=== PATIENT | female | born 1965 | race African-American/Black ===

== ENCOUNTER 2018-05-24 12:43 | Observation (INO) | payer MEDICAID ==
[~2018-05-24] VITALS: Ht 160 cm; Wt 117.9 kg
[~2018-05-24 12:43] MED LIST: BENADRYL; CLONIDINE; IBUP1POW8; LISIPOW; TRAMADOL; VICODIN
[2018-05-24] MEDS ORDERED: ACETAMINOPHEN 325 MG TAB PO ONE (15:15)
[2018-05-24 16:08] LABS: Basophils # (auto) 0.1 uL; Eosinophils # (auto) 0.2 uL; Neutrophils # (auto) 6.8 uL; Nucleated Red Blood Cells % 0.1 %
[2018-05-24 16:09] LABS: Basophils % (auto) 1.3 % (0.0-2.0); Eosinophils % (auto) 1.9 % (0.0-7.0); Hematocrit 37.7 % (36.0-46.0); Hemoglobin 12.3 g/dL (12.2-16.2); Lymphocytes # (auto) 1.7 uL; Lymphocytes % (auto) 17.8 % (10.0-50.0); Mean Corpuscular Hemoglobin 26.8 pg (28.0-32.0); Mean Corpuscular Hgb Conc. 32.8 g/dL (32.0-36.0); Mean Corpuscular Volume 81.7 fL (80.0-100.0); Monocytes # (auto) 0.9 uL; Monocytes % (auto) 9.4 % (0.0-12.0); Neutrophils % (auto) 69.6 % (37.0-80.0); Platelet Count (auto) 293 10^3/uL (140-450); Red Blood Cells 4.61 10^6/uL (4.0-5.20); Red Cell Distribution Width 15.4 % (11.8-14.3); White Blood Cell 9.7 10^3/uL (4.4-10.8)
[2018-05-24 16:20] LABS: Albumin 3.4 g/dL (3.4-5.0); Calcium 8.7 mg/dL (8.5-10.1); Magnesium 2.6 mg/dL (1.6-2.6); Potassium 3.7 mmol/L (3.5-5.1)
[2018-05-24 16:24] LABS: BUN/Creatinine Ratio 14.9; Bilirubin, Total 0.3 mg/dL (0.2-1.0); Total Protein 7.7 g/dL (6.4-8.2)
[2018-05-24 17:42] LABS: INR 0.99 (0.9-1.15); Partial Thromboplastin Time 28.6 sec (23.78-33.04); Prothrombin Time 10.6 sec (9.27-12.13)
[2018-05-24] MEDS ORDERED: cefTRIAXone 1GM/10ml IVPUSH 10 ML IV ONE (18:00)
[2018-05-24] MEDS ORDERED: IOHEXOL 300 MG/ML 100ML BOTTLE IJ ONE (18:10)
[2018-05-24] MEDS ORDERED: KETOROLAC TROMETH 30 MG/ML 1ML VIAL IV ONE (19:45)
[2018-05-24 21:52] VITALS: BP 158/71
[2018-05-28] MEDS ORDERED: POTA-167 PO (11:34)
[2018-05-28] MEDS ORDERED: METF-370 PO (11:34)
[2018-05-28] MEDS ORDERED: NIF30XLT PO (11:34)
[2018-05-28] MEDS ORDERED: HCTZ25T PO (11:34)
[2018-05-28] MEDS ORDERED: LISI-646 PO (11:34)
[2018-05-28] MEDS ORDERED: FUR20T PO (11:34)
== END 2018-05-24 23:22 | disposition home or self-care (01) | DRG 347 ==
LOC: ER 12:43 → EDBD 12:43 → OVERFLOW 12:44 → ER 23:22
PROVIDERS: ADMIT Family Medicine; ATTEND Family Medicine
DX: M54.2 Cervicalgia (principal); J45.909 Unspecified asthma, uncomplicated; R60.9 Edema, unspecified
CPT/HCPCS: 36415; 70360; 70491; 71045; 80053; 82962; 83735; 85025; 85610; 85730; 96374; 96375; 99285; G0378; J0696; J1885; Q9967

== ENCOUNTER 2018-05-26 03:06 | Inpatient (IN) | payer MEDICAID ==
[~2018-05-26] VITALS: Ht 160 cm; Wt 120.1 kg
[2018-05-26] MEDS ORDERED: IPRATROPIUM BROM 0.5 MG/2.5ML INH SOL NEB ONE (04:15)
[2018-05-26] MEDS ORDERED: methylPREDNISolone SOD SUCC 125 MG/2 ML VL IV ONE (04:15)
[2018-05-26] MEDS ORDERED: SODIUM CHLORIDE 0.9% 1,000 ML IV ONE (04:15)
[2018-05-26] MEDS ORDERED: ALBUTEROL SULF 2.5 MG/0.5ML(0.5%) NEB SOLN NEB ONE (04:15)
[2018-05-26 04:56] LABS: Basophils # (auto) 0.1 uL; Basophils % (auto) 1.1 % (0.0-2.0); Eosinophils # (auto) 0.1 uL; Lymphocytes # (auto) 1.2 uL; Monocytes # (auto) 0.5 uL; Nucleated Red Blood Cells % 0.1 %
[2018-05-26 04:58] LABS: Eosinophils % (auto) 1.6 % (0.0-7.0); Hematocrit 34.5 % (36.0-46.0); Hemoglobin 11.7 g/dL (12.2-16.2); Lymphocytes % (auto) 16.7 % (10.0-50.0); Mean Corpuscular Hemoglobin 27.1 pg (28.0-32.0); Mean Corpuscular Hgb Conc. 33.8 g/dL (32.0-36.0); Mean Corpuscular Volume 80.2 fL (80.0-100.0); Monocytes % (auto) 6.9 % (0.0-12.0); Neutrophils # (auto) 5.4 uL; Neutrophils % (auto) 73.7 % (37.0-80.0); Platelet Count (auto) 274 10^3/uL (140-450); White Blood Cell 7.3 10^3/uL (4.4-10.8)
[2018-05-26 05:05] LABS: Urine Bacteria NONE SEEN /hpf (None Seen); Urine Blood 3+ /uL (Negative); Urine WBC 3 /hpf (0 - 5)
[2018-05-26 05:14] LABS: Partial Thromboplastin Time 28.5 sec (23.78-33.04); Prothrombin Time 10.7 sec (9.27-12.13)
[2018-05-26 05:15] LABS: Alanine Aminotransferase 117 U/L (13-56); Albumin 3.2 g/dL (3.4-5.0); Anion Gap 6 (5-15); Aspartate Aminotransferase 112 U/L (15-37); Blood Urea Nitrogen 8 mg/dL (7-18); Calcium 8.5 mg/dL (8.5-10.1); Carbon Dioxide 31 mmol/L (21-32); Chloride 104 mmol/L (98-107); Glucose 131 mg/dL (74-106); Magnesium 2.4 mg/dL (1.6-2.6); Potassium 3.6 mmol/L (3.5-5.1); Sodium 141 mmol/L (136-145)
[2018-05-26 05:19] LABS: Alkaline Phosphatase 150 U/L (45-117); BUN/Creatinine Ratio 9.9; Bilirubin, Total 0.4 mg/dL (0.2-1.0); GFR African American 96 mL/min; GFR Non-African American 79 mL/min; Total Protein 7.3 g/dL (6.4-8.2)
[2018-05-26] MEDS ORDERED: ONDANSETRON HCL 4 MG/2 ML VIAL IV ONE (07:15)
[2018-05-26] MEDS ORDERED: FUROSEMIDE 20 MG/2 ML VIAL IV ONE (08:00)
[2018-05-26] MEDS ORDERED: ACETAMINOPHEN 500 MG TAB PO PRN (08:00)
[2018-05-26] MEDS ORDERED: ALBUTEROL SULF 2.5 MG/0.5ML(0.5%) NEB SOLN NEB PRN (08:00)
[2018-05-26] MEDS ORDERED: MORPHINE SULFATE 4 MG/ML SYR/VIAL IV PRN (08:00)
[2018-05-26] MEDS ORDERED: IOHEXOL 350 MG/ML 100ML IJ ONE (08:09)
[2018-05-26] MEDS ORDERED: DEXTROSE (50%) 50ML SYRG IV PRN (08:15)
[2018-05-26] MEDS ORDERED: cloNIDine HCL 0.1 MG TAB PO SCH (10:00)
[2018-05-26] MEDS: DOCUSATE SOD 100 MG CAP PO SCH ×2 (10:29→22:08)
[2018-05-26 11:38] VITALS: BP 147/89
[2018-05-26] MEDS: IPRATROPIUM BROM 0.5 MG/2.5ML INH SOL NEB SCH ×4 (12:08→23:25)
[2018-05-26] MEDS: ALBUTEROL SULF 2.5 MG/0.5ML(0.5%) NEB SOLN NEB SCH ×3 (12:09→23:25)
[2018-05-26] MEDS: HYDROcodone-ACET 5/325MG TAB PO PRN ×2 (12:30→20:44)
[2018-05-26] MEDS: InsuLIN REG 1unit/0.01ml Soln (100units/ml) SC SCH ×3 (12:30→22:09)
[2018-05-26] MEDS: ACCU-CHEK COMFORT CURVE STRIP VI SCH ×3 (12:36→22:09)
[2018-05-26] MEDS ORDERED: HCTZ 25 MG TAB PO ONE (14:00)
[2018-05-26] MEDS ORDERED: LISINOPRIL 20 MG TAB PO ONE (14:00)
[2018-05-26 16:59] VITALS: BP 126/80
[2018-05-26 22:00] VITALS: BP 144/90
[2018-05-27] VITALS (7 sets, daily range): BP systolic 144–196; BP diastolic 82–90
[2018-05-27] MEDS: HYDROcodone-ACET 5/325MG TAB PO PRN ×3 (04:16→18:36)
[2018-05-27] MEDS: IPRATROPIUM BROM 0.5 MG/2.5ML INH SOL NEB SCH ×3 (06:16→17:39)
[2018-05-27] MEDS: ALBUTEROL SULF 2.5 MG/0.5ML(0.5%) NEB SOLN NEB SCH ×3 (06:16→17:39)
[2018-05-27] MEDS: ACCU-CHEK COMFORT CURVE STRIP VI SCH ×4 (06:27→23:39)
[2018-05-27] MEDS: InsuLIN REG 1unit/0.01ml Soln (100units/ml) SC SCH ×4 (06:27→23:38)
[2018-05-27 07:41] LABS: Basophils # (auto) 0.1 uL; Basophils % (auto) 0.8 % (0.0-2.0); Eosinophils # (auto) 0 uL; Hematocrit 35.5 % (36.0-46.0); Lymphocytes # (auto) 1.3 uL; Lymphocytes % (auto) 10.6 % (10.0-50.0); Mean Corpuscular Hgb Conc. 33.7 g/dL (32.0-36.0); Mean Corpuscular Volume 80.2 fL (80.0-100.0); Monocytes # (auto) 0.9 uL; Monocytes % (auto) 7.6 % (0.0-12.0); Platelet Count (auto) 310 10^3/uL (140-450); Red Blood Cells 4.43 10^6/uL (4.0-5.20); Red Cell Distribution Width 14.8 % (11.8-14.3); White Blood Cell 12.3 10^3/uL (4.4-10.8)
[2018-05-27 08:02] LABS: Albumin 3.3 g/dL (3.4-5.0); Anion Gap 6 (5-15); Bilirubin, Direct 0.1 mg/dL (0-0.2); Blood Urea Nitrogen 15 mg/dL (7-18); Carbon Dioxide 32 mmol/L (21-32); Chloride 102 mmol/L (98-107); Glucose 141 mg/dL (74-106); Potassium 3.5 mmol/L (3.5-5.1); Sodium 140 mmol/L (136-145)
[2018-05-27 08:03] LABS: Bilirubin, Total 0.3 mg/dL (0.2-1.0); Total Protein 7.4 g/dL (6.4-8.2)
[2018-05-27 08:08] LABS: BUN/Creatinine Ratio 16.3; Calcium 9.4 mg/dL (8.5-10.1); Cholesterol 152 mg/dL (< 200); GFR African American 83 mL/min; GFR Non-African American 68 mL/min; HDL Cholesterol 43 mg/dL (40-59); LDL Cholesterol 99 mg/dL (< 100); Triglycerides 62 mg/dL (< 150)
[2018-05-27] MEDS ORDERED: ADENOSINE 98 MG in GIVE UN-DILUTED 0 ML IV STA (08:30)
[2018-05-27] MEDS ORDERED: LISINOPRIL 20 MG TAB PO SCH (10:00)
[2018-05-27] MEDS ORDERED: LORazepam 2MG/ML-1ML VIAL IV ONE (10:45)
[2018-05-27] MEDS ORDERED: LACTULOSE 20Gm/30ML SOLN PO PRN (11:45)
[2018-05-27] MEDS: DOCUSATE SOD 100 MG CAP PO SCH ×2 (11:54→20:44)
[2018-05-27] MEDS: HCTZ 25 MG TAB PO SCH (11:56)
[2018-05-27] MEDS: POTASSIUM CHL 10 Meq TABLET PO SCH (12:00)
[2018-05-27] MEDS: FUROSEMIDE 20 MG TAB PO SCH (12:01)
[2018-05-27] MEDS: LISINOPRIL 20 MG TAB PO SCH (20:44)
[2018-05-28 05:43] VITALS: BP 152/85
[2018-05-28 06:14] LABS: Basophils # (auto) 0.1 uL; Basophils % (auto) 0.7 % (0.0-2.0); Eosinophils # (auto) 0.1 uL; Eosinophils % (auto) 1.3 % (0.0-7.0); Hemoglobin 11.8 g/dL (12.2-16.2); Lymphocytes # (auto) 1.7 uL; Lymphocytes % (auto) 17.3 % (10.0-50.0); Mean Corpuscular Hemoglobin 27.1 pg (28.0-32.0); Mean Corpuscular Hgb Conc. 33.8 g/dL (32.0-36.0); Monocytes # (auto) 0.8 uL; Monocytes % (auto) 8.5 % (0.0-12.0); Neutrophils % (auto) 72.2 % (37.0-80.0); Platelet Count (auto) 301 10^3/uL (140-450); Red Blood Cells 4.37 10^6/uL (4.0-5.20); White Blood Cell 9.6 10^3/uL (4.4-10.8)
[2018-05-28] MEDS: InsuLIN REG 1unit/0.01ml Soln (100units/ml) SC SCH ×2 (06:18→11:30)
[2018-05-28] MEDS: ACCU-CHEK COMFORT CURVE STRIP VI SCH ×2 (06:19→12:07)
[2018-05-28 06:24] LABS: BUN/Creatinine Ratio 18.3; Calcium 8.6 mg/dL (8.5-10.1); Potassium 3.6 mmol/L (3.5-5.1)
[2018-05-28 06:26] LABS: Bilirubin, Total 0.3 mg/dL (0.2-1.0); Total Protein 7.2 g/dL (6.4-8.2)
[2018-05-28] MEDS: IPRATROPIUM BROM 0.5 MG/2.5ML INH SOL NEB SCH ×3 (06:57→12:00)
[2018-05-28] MEDS: ALBUTEROL SULF 2.5 MG/0.5ML(0.5%) NEB SOLN NEB SCH ×3 (06:58→12:00)
[2018-05-28 08:26] VITALS: BP 137/67
[2018-05-28] MEDS: HYDROcodone-ACET 5/325MG TAB PO PRN ×2 (08:29→15:15)
[2018-05-28] MEDS ORDERED: DOBUTamine 1000MCG/ML 100 ML IV ONE (08:37)
[2018-05-28] MEDS ORDERED: NIFEdipine ER 30 MG TAB PO SCH (10:00)
[2018-05-28] MEDS: DOCUSATE SOD 100 MG CAP PO SCH (10:20)
[2018-05-28] MEDS: POTASSIUM CHL 10 Meq TABLET PO SCH (10:21)
[2018-05-28] MEDS: HCTZ 25 MG TAB PO SCH (10:21)
[2018-05-28] MEDS: FUROSEMIDE 20 MG TAB PO SCH (10:21)
[2018-05-28] MEDS: LISINOPRIL 20 MG TAB PO SCH (10:22)
[2018-05-28] MEDS ORDERED: ATROPINE SULF 1 MG/10ml SYR ONE (10:57)
[2018-05-28] MEDS ORDERED: LISI-646 PO (11:34)
[2018-05-28] MEDS ORDERED: FUR20T PO (11:34)
[2018-05-28] MEDS ORDERED: HCTZ25T PO (11:34)
[2018-05-28] MEDS ORDERED: NIF30XLT PO (11:34)
[2018-05-28] MEDS ORDERED: POTA-167 PO (11:34)
[2018-05-28] MEDS ORDERED: METF-370 PO (11:34)
[2018-05-28 11:52] VITALS: BP 163/91
[2018-05-28 12:35] VITALS: BP 172/90
[2018-05-28 17:00] VITALS: BP 123/84
== END 2018-05-28 17:15 | disposition home or self-care (01) | DRG 194 ==
LOC: EDBD 03:06 → ER 03:06 → TELE 03:07 → TELE-EAST 10:43
PROVIDERS: ADMIT Nurse Practitioner Family; ATTEND Internal Medicine
DX: I11.0 Hypertensive heart disease with heart failure (principal); J45.902 Unspecified asthma with status asthmaticus; E66.01 Morbid (severe) obesity due to excess calories; K76.0 Fatty (change of) liver, not elsewhere classified; J45.901 Unspecified asthma with (acute) exacerbation; Z68.42 Body mass index [BMI] 45.0-49.9, adult; K59.00 Constipation, unspecified; I50.31 Acute diastolic (congestive) heart failure; R07.89 Other chest pain; E11.9 Type 2 diabetes mellitus without complications; E78.5 Hyperlipidemia, unspecified; E89.0 Postprocedural hypothyroidism; R79.1 Abnormal coagulation profile; Z82.49 Family history of ischemic heart disease and other diseases of the circulatory system; Z88.0 Allergy status to penicillin
CPT/HCPCS: 36415; 71045; 71275; 78452; 80048; 80053; 80061; 80076; 81001; 82962; 83036; 83735; 83880; 84443; 84484; 85025; 85379; 85610; 85730; 87081; 93005; 93017; 93306; 93970; 94640; 96361; 96374; J0153; J1815

== ENCOUNTER 2019-03-05 23:04 | Emergency (ER) | payer MEDICAID ==
[~2019-03-05] VITALS: Ht 160 cm; Wt 122.5 kg
[~2019-03-05 23:04] MED LIST changes: -BENADRYL; -CLONIDINE; +FUR20T PO; +HCTZ25T PO; -IBUP1POW8; +LISI-646 PO; -LISIPOW; +METF-370 PO; +NIFE30TA77 PO; +POTA-167 PO; -TRAMADOL; -VICODIN
[2019-03-06] MEDS ORDERED: PROMETHAZINE HCL 25 MG/ML 1ML IV ONE (00:15)
[2019-03-06] MEDS ORDERED: LORazepam 2MG/ML-1ML VIAL IV ONE (00:15)
[2019-03-06 01:01] LABS: Basophils # (auto) 0.1 uL; Basophils % (auto) 0.6 % (0.0-2.0); Eosinophils # (auto) 0 uL; Eosinophils % (auto) 0.6 % (0.0-7.0); Hematocrit 39.3 % (36.0-46.0); Hemoglobin 13.1 g/dL (12.2-16.2); Lymphocytes # (auto) 1.3 uL; Lymphocytes % (auto) 15.4 % (10.0-50.0); Mean Corpuscular Hemoglobin 25.5 pg (28.0-32.0); Mean Corpuscular Hgb Conc. 33.3 g/dL (32.0-36.0); Mean Corpuscular Volume 76.7 fL (80.0-100.0); Monocytes # (auto) 0.5 uL; Neutrophils # (auto) 6.6 uL; Neutrophils % (auto) 77.4 % (37.0-80.0); Platelet Count (auto) 272 10^3/uL (140-450); Red Blood Cells 5.12 10^6/uL (4.0-5.20); Red Cell Distribution Width 17.1 % (11.8-14.3); White Blood Cell 8.6 10^3/uL (4.4-10.8)
[2019-03-06 01:15] LABS: Alanine Aminotransferase 52 U/L (13-56); Albumin 3.8 g/dL (3.4-5.0); Anion Gap 13 (5-15); Aspartate Aminotransferase 32 U/L (15-37); BUN/Creatinine Ratio 12.4; Blood Urea Nitrogen 12 mg/dL (7-18); Calcium 8.7 mg/dL (8.5-10.1); Carbon Dioxide 25 mmol/L (21-32); Chloride 106 mmol/L (98-107); GFR African American 78 mL/min; GFR Non-African American 64 mL/min; Glucose 239 mg/dL (74-106); Magnesium 1.6 mg/dL (1.6-2.6); Sodium 144 mmol/L (136-145)
[2019-03-06 01:21] LABS: Alkaline Phosphatase 135 U/L (45-117); Bilirubin, Total 0.3 mg/dL (0.2-1.0); INR 0.98 (0.9-1.15); Partial Thromboplastin Time 26.2 sec (23.64-32.05); Total Protein 8.2 g/dL (6.4-8.2)
[2019-03-06 01:22] LABS: Potassium 2.7 mmol/L (3.5-5.1)
[2019-03-06] MEDS ORDERED: POTASSIUM CHL 20 Meq TABLET PO ONE ×2 (01:45→03:45)
[2019-03-06 03:30] VITALS: BP 132/98
== END 2019-03-06 04:30 | disposition home or self-care (01) ==
LOC: EDBD 23:04 → ER 23:09
DX: T78.40XA Allergy, unspecified, initial encounter (principal); F41.9 Anxiety disorder, unspecified; J45.909 Unspecified asthma, uncomplicated; X58.XXXA Exposure to other specified factors, initial encounter; Z88.0 Allergy status to penicillin
CPT/HCPCS: 36415; 71045; 80053; 83735; 83880; 84484; 85025; 85610; 85730; 93005; 94761; 96374; 96375; 99284; J2060; J2550

== ENCOUNTER 2019-06-22 10:28 | Emergency (ER) | payer MEDICAID ==
[~2019-06-22] VITALS: Ht 157.5 cm; Wt 117.9 kg
[2019-06-22] MEDS ORDERED: cloNIDine HCL 0.1 MG TAB PO ONE (11:00)
[2019-06-22 13:05] VITALS: BP 135/95
[2019-06-22] MEDS ORDERED: TETRACAINE HCL 0.5% OPTH(EYE) SOLN 4ML LEFTEYE ONE (13:15)
[2019-06-22] MEDS ORDERED: FLUORESCEIN SOD 1 MG TEST STRIP LEFTEYE ONE (13:15)
== END 2019-06-22 14:34 | disposition home or self-care (01) ==
LOC: ER 10:29
DX: S05.02XA Injury of conjunctiva and corneal abrasion without foreign body, left eye, initial encounter (principal); J45.909 Unspecified asthma, uncomplicated; Z88.0 Allergy status to penicillin; Z79.899 Other long term (current) drug therapy; X58.XXXA Exposure to other specified factors, initial encounter; Y93.89 Activity, other specified; Y92.89 Other specified places as the place of occurrence of the external cause; Y99.8 Other external cause status

== ENCOUNTER 2022-12-05 15:01 | Emergency (ER) | payer MEDICAID ==
[~2022-12-05] VITALS: Ht 157.5 cm; Wt 106.8 kg
[~2022-12-05 15:01] MED LIST changes: -HCTZ25T PO; +HYDR25TA5 PO; -LISI-646 PO; +LISI20TA28 PO; +NIFE1TAB36 PO; -NIFE30TA77 PO
[2022-12-05] MEDS ORDERED: FLUORESCEIN SOD OPTH TEST STRIP LEFTEYE ONE (16:45)
[2022-12-05] MEDS ORDERED: TETRACAINE HCL 0.5% OPTH(EYE) SOLN 4ML LEFTEYE ONE (16:45)
[2022-12-05] MEDS ORDERED: HYDR-4902 PO (17:40)
[2022-12-05] MEDS ORDERED: ERY05OO OP (17:40)
[2022-12-05 17:41] VITALS: BP 154/103
== END 2022-12-05 17:49 | disposition home or self-care (01) ==
LOC: ER 15:01
DX: H16.002 Unspecified corneal ulcer, left eye (principal); J45.909 Unspecified asthma, uncomplicated; Z88.0 Allergy status to penicillin